=== PATIENT | female | born 1980 | race Caucasian/White ===

== ENCOUNTER 2016-05-14 20:13 | Emergency (ER) | payer OTHER ==
[~2016-05-14] VITALS: Ht 160 cm; Wt 59.1 kg
[2016-05-14 20:19] VITALS: BP 135/93; PULSE 88; RESP 19; O2SAT 100
[2016-05-14] MEDS ORDERED: FLUT9.9S NOSTRIL (20:26)
[2016-05-14] MEDS ORDERED: CETI10CA PO (20:26)
--- NOTE | 2016-05-14 22:04 | ED.REPORT ---
HPI-Eye Problem Date of Service May 14, 2016 ED Provider: Vignesh Perdue MD A 36 year old female with a history of environmental allergies presents to the ED from complaining of eye pain, redness and itching onset onset two weeks ago that have become exacerbated tonight. Eye pain is described as pressure. She went to today at 1700. Tonight's symptoms are similar to symptoms that occurred 1 week ago when the patient visited for a severe allergic reaction to eyedrops she was given by her PCP, Dr. Francisco a little over a week ago She started taking the eyedrops one week ago and subsequently experienced the allergic reaction. Last week at , she was given a 5 minute eye flush, and she was given Benadryl and Prednisone. She took Benadryl tonight at as well, but has not had any Prednisone since last week. She did not do any numbing eye drops while at [facility]. Within the past two weeks, the patient has had episodes of blurry vision and eye numbness. Her left eye has seemed to have been bothering her more than the right. Last night, the patient only got two hours of sleep before she had to put a wet rag over her eyes to relieve itching. She woke up in this morning with crust on her eyes described as a rey mist. She asked Dr. Francisco about lymph node in armpit, but he though there was nothing concerning about them.1 month ago, the patient had a sinus infection that felt like stabbing pain. 2 months ago, she had a small abscess appear at the base of her neck with puss. She reports that her environmental allergies have gotten worse with each . She does wear glasses. Per nurse note, she was given cream by her senior designer/art director to treat a spot under her left eyelid. Nursing Notes Stated Complaint: EYE IRRITATION/SENT FROM URGENT CARE Chief Complaint: Eye Nursing Notes Reviewed: Yes ([employer], [employer] reconciled) Allergies: Coded Allergies: Sulfa (Sulfonamide Antibiotics) (Verified Allergy, Severe, seizure, ) Scheduled Cetirizine HCl (Zyrtec) 10 Mg Capsule 10 MG PO HS Fluticasone Propionate (Flonase Allergy Relief) 50 Mcg/Actuation [place].susp 1 SPRAY NOSTRIL DAILY Scheduled PRN Alcaftadine (Lastacaft) 3 Ml Drops 1 GTT OP DAILY PRN PRN For Itching Naphazoline HCl/Pheniramine (Allergy Eye Drops) 0.025 %-0.3 % Drops 1 GTT OP QID PRN PRN For Itching General Time Seen by MD: 22:02 Chief Complaint Both eyes affected Hx Obtained From: Patient Arrived By: Walk-in Sudden in Onset?: No Onset Occurred: 9 - 12 hours ago Quality: Pressure Severity: Current: Moderate Severity: Maximum: Moderate Recent Healthcare: Recent doctor visit Similar Sx Previous: No Past Medical History Past Medical History Reports environmental allergies that seem to get worse with each . Past Surgical History Skin cancer removal. Social History Other Social History: Good social support Ambulatory Status Independent Review of Systems Review of Systems Note: Eye pain, redness and itching in both eyes. Numbness in both eyes within last two weeks. Eye crust. Abscess on base on neck. Eyes: Reports: Blurred bilateral Complete sys rev & neg: except as marked. Physical Exam Initial Vital Signs Vital Signs (First) Date Time Temp Pulse Resp B/P Pulse Ox O2 Delivery O2 Flow Rate FiO2 05/14/16 20:19 36.5 88 19 135/93 100 Room Air Initial VS: Reviewed, Vital signs normal (nl visual acuity) Head / Eyes: Normocephalic, PERRL, EOMI, Eyelids NL Eyelases normal. General/Constitutional: Awake, Alert ENT: Atraumatic, Mucous membranes moist Skin: Warm, Dry Neurologic: Oriented X3, Speech NL Neck: Atraumatic, No swelling Respiratory / Chest: Atraumatic, Breath sounds NL, Breath sounds = bilat, No respiratory distress, No rales, No rhonchi, No wheezing Cardiovascular: Heart rate NL, Regular rhythm, Heart sounds NL, No gallop, No murmurs, No rubs Abdomen: No guarding, No rebound Lymphatic: No gross adenopathy Upper Extremity / MS: No swelling, No edema Wrist / Hand: No swelling, No edema Lower Extremity / Pelvis / MS: No swelling, No edema Procedures Slit Lamp Exam No dialting agent. Fluorescein staining, but no uptake. No dendrites. Anterior chamber deep and clear. No chemosis. No drainage or purulence. Time: 22:20 Procedure Performed by: ED physician Which Eye: Both Dilating Agent & Anesthesia: Anesthesia: Tetracaine Eyelid / Conjunctiva / Sclera: Eyelid(s) normal, Conjunctiva injected Cornea/Ant Chamber/Iris/Lens: Cornea normal Re-Eval/Medical Decision Med Decision/Clinical Course This is a 36-year-old female presents with redness and itching of the eyes. She seen about a week ago and given a prescription for a topical antihistamine/ mast cell stabilizer which she indicated she think she had a reaction to that she started several days ago, and immediately developed, numbness around the face-and went to urgent care if she is given oral dose of steroids and Benadryl and symptoms improved. She still having the itching watery, red eyes to the point is bothering her when she sleeps. Charts his pain, all she talks about to me is itching. There is no photophobia. Is no history of foreign body. She does wear glasses and she has contact lenses but she has not worn contact lenses for a number of months-and she was counseled not to wear them at this point. She has had no purulent drainage. She has no additional complaints. The left eye is worse than the right, both eyes are symptomatic. He has no other allergic symptoms. His normal visual acuity, she is conjunctival injection, however slit lamp examination is otherwise normal except for conjunctival injection. The cornea is normal, there is no ecchymosis, there is no purulent drainage, forcing staining is negative both for ulcer, abrasion, foreign body, or dendrites. Chambers deep and clear. At this point the patient continues to make a strong presentation for allergic conjunctivitis. Eyes were irrigated with saline. The patient received an oral dose of dexamethasone and is advised to continue Benadryl-she is noted that has helped. I do not have an understanding is exactly like she developed a reaction to the previous eyedrop, the risk of that seems quite low. But I discussed options including Naphcon-A, as well as in a isolated topical antihistamine and written prescription for this. I did indicate his symptoms are not clearly responding, follow-up with ophthalmology would be indicated and referral information provided. She is discharged, well-appearing in improved condition. Routine and return precautions reviewed. Source of Hx: Old records Re-Evaluation/Progress : Time of Eval: 22:20 Re-Evaluation/Progress Note: Rechecked patient and performed Slit Lamp Exam. Explained diagnosis and plan for discharge. Patient understands and agrees with the plan. Differential Diagnosis: Positive: Conjunctivitis, allergic, Negative: Acute vision loss, Conjunctivitis, bacterial, Corneal abrasion, Corneal laceration, Corneal ulceration, Endophthalmitis, Foreign body, corneal, Foreign body, intraocular, Herpes simplex keratitis, Hordeolum (sty), Hyphema, Lens dislocation, Lens subluxation, Orbital cellulitis, Orbital fracture, Periorbital cellulitis, Preseptal cellulitis, Retinal artery occlusion, Rust ring, Sickle cell disease, Subconjunctiva hemorrhage, Ultraviolet keratitis Counseled Regarding: Diagnosis, Lab results, Need for follow-up, When/why to return to ED Discharge & Departure Primary Impression: Conjunctivitis Conjunctivitis type: acute Acute conjunctivitis type: atopic Laterality: bilateral Qualified Code: H10.13 - Acute atopic conjunctivitis, bilateral Disposition: Home Discharge Condition All VS Reviewed: Yes Condition: Improved Additional Instructions: 1. Your symptoms and exam are suggestive of allergic conjunctivitis. 2. No findings of a bacterial infection or ulcer were appreciated on exam. 3. I recommend taking benadryl 25mg 1-2 tabs (up to three times a day) to help with the itching. (Definitely take 2 tabs at bedtime, it should help you sleep) 4. Since you had a reaction to the pataday (which contains a "MAST cell stabilizer) - discontinue. 5. There are two additional eye drop medications that should help with the redness and itching that you can use IF needed: a) Naphcon A - 1 drop in each eye up to 4 times a day as needed for redness or itching (an occular decongestant) b) Alcaftadine - 1 drop in each eye daily as needed (this is a pure antihistamine for the eye). 6. Follow up with the opthomologist if not clearly improved in 1 week. Referrals: Ruddy Francisco DO (PCP) Scribe Attestation Portions of this note were transcribed by Carter Dumont. I, Dr. Perdue personally performed the history, physical exam and medical decision-making; I reviewed and confirmed the accuracy of the information in the transcribed note. Signed by: Sridhar Sanchez, 05/14/2016 2330. copies to: Ruddy Francisco DO; Tamie Gibson MD, Matthew F MD May 14, 2016 22:04 Carter Dumont May 14, 2016 22:33
[2016-05-14] MEDS ORDERED: 0.9% Sodium Chloride Inhalation Solution LEFT_EYE ONE (22:05)
[2016-05-14] MEDS ORDERED: Fluorescein 0.6 mg Ophthalmic Strip LEFT_EYE ONE (22:05)
[2016-05-14] MEDS ORDERED: Tetracaine 0.5% 4 mL Ophthalmic Solution LEFT_EYE ONE (22:05)
[2016-05-14] MEDS ORDERED: Dexamethasone 20 mg/2 mL Oral Solution PO ONE (22:35)
[2016-05-14] MEDS ORDERED: NAPH15DR63 OP (22:45)
[2016-05-14] MEDS ORDERED: ALCA3DRO OP (22:45)
[2016-05-14 23:02] VITALS: BP 115/81; PULSE 41; O2SAT 99
== END 2016-05-14 23:02 | disposition home or self-care (01) ==
LOC: SED 20:13
DX: H10.13 Acute atopic conjunctivitis, bilateral (principal); Z88.2 Allergy status to sulfonamides